=== PATIENT | female | born 1980 | race Caucasian/White ===

== ENCOUNTER 2023-02-16 18:48 | Emergency (ER) | payer OTHER, SELFPAY ==
[2023-02-16 18:49] VITALS: BP 122/83; PULSE 88; RESP 16; TEMP 36.6; O2SAT 100; BMI 21.9
--- NOTE | 2023-02-16 19:10 | ED.VIS.FEGU ---
HPI HPI - Female History of Present Illness Chief Complaint: Vag Bleeding Informant: patient Narrative Narrative: Patient presents with vaginal bleeding. Patient states that she started with a little bit of vaginal bleeding that was mild on Saturday. It paused. She has had slight clear mucus. She has had a little bit of red bleeding today. She has a little bit of may be discomfort in her pelvic areas but its not like a period cramp. Its not pain. Is very minimal. She is only had a small amount of bleeding. No clots. No fevers or chills. No urinary symptoms. No back or flank pain. Her last menstrual cycle was about 3 weeks ago. But that cycle was 1 week off. She states she has had problems sometimes in the spring with her menstrual cycles being irregular. The reason she came in today as she called her doctor's office in [place] and they recommended she come to the ER. It sounds like the concern is if she may be . She has never been before. No blood thinners. PFSH PFSH Allergy/AdvReac Type Severity Reaction Status Date / Time No Known Allergies Allergy Verified 02/16/23 18:51 Social History Smoking Status: Never smoker ROS ROS ED Constitutional Constitutional ED: Denies chills or fever(s) Cardiovascular Cardiovascular: Denies chest pain, palpitations or racing heartbeat Respiratory/Chest Respiratory/Chest: Denies cough Gastrointestinal Gastrointestinal: Denies constipation, diarrhea, melena, nausea or vomiting Genitourinary Genitourinary ED: Reports other Details: See history of present illness ; Denies dysuria, hematuria or urinary frequency Musculoskeletal Musculoskeletal: Denies neck pain Neurologic Neurologic: Denies paresthesias or weakness Hematologic/Lymphatic Hematologic/Lymphatic: Denies easy bleeding or easy bruising Allergic/Immunologic Allergic/Immunologic ED: Denies urticaria EXAM Physical Exam Narrative Exam Narrative: Patient awake alert no acute distress. She walked back from triage comfortably. HEENT shows no trauma. Oropharynx is moist. Eyes show no pallor at all. No indication of anemia. Heart is regular. Not tachycardic. No murmur gallop or rub. Lungs are clear. Saturations are 100% on room air showing no hypoxia. Abdomen is thin flat has normal bowel sounds. There is no tenderness anywhere in the abdomen including in the lower pelvic areas suprapubic region. Very benign abdomen. shows no suprapubic or CVA area tenderness. Extremities show no edema cords or abnormal bruising or petechiae. Neurologically patient awake alert stable gait strength no focal deficit. Const Vital Signs: 02/16/23 18:49 02/16/23 21:44 Temperature 97.9 F Temperature Source Temporal Pulse Rate 88 88 Respiratory Rate 16 16 Blood Pressure 122/83 H 122/83 H Blood Pressure Mean 96 Pulse Ox 100 100 Oxygen Delivery Method Room Air MDM MDM MDM Narrative Medical decision making narrative: Patient's urinalysis shows a few red cells but no sign of infection. test was negative. I talk with the patient and her significant other. They have been trying to get . They are wondering why she is having some irregular cycles. We discussed that it is a little beyond the emergency department to make a firm diagnosis of that. There are multiple factors that can contribute to this. With the patient's age it is even possible she is starting to go through menopause. Evidently her mother went through in her mid to late 30s. The patient evidently has a follow-up with a new [employer] doctor in about 2 weeks. I have encouraged her to follow-up. I do not think the patient needs ultrasound and pelvic exam. She has mild spotting with slightly irregular menstrual cycles with a normal exam no sign of anemia and not . Lab Data Labs: Laboratory Results - last 24 hr 02/16/23 20:35 Urine Color Yellow Urine Clarity Clear Urine pH 5.0 Ur Specific [place] 1.020 Urine Protein Negative Urine Glucose (UA) Normal Urine Ketones Negative Urine Occult Blood 150 H Urine Nitrite Negative Urine Bilirubin Negative Urine Urobilinogen Normal Ur Leukocyte Esterase 25 H Urine RBC 5-10 SEEN Urine WBC 0-5 SEEN Ur Squamous Epith Cells 0-5 SEEN Urine Bacteria RARE Urine Mucus 0 SEEN Urine Test Negative Discharge Plan Triage Chief Complaint: Vag Bleeding ED Provider: Nestor Gant Dx/Rx/DC Orders Clinical Impression: Vaginal spotting, Irregular menses Instructions: ED Dysfunctional Uterine Bleeding Activity Restrictions/Additional Instructions: See your new wet machine tender as scheduled later this month. Disposition Disposition: Home, Self Care Discharge Date/Time: 02/16/23 21:48
[2023-02-16 20:43] LABS: Mucous, Urine 0 SEEN /hpf (<or=2+)
[2023-02-16 20:44] LABS: Color, Urine Yellow (Yellow); Glucose, Dipstick Normal (Normal); Ketone-Dipstick Negative (Negative); Leukocyte Esterase-Dipstick 25 /ul (Negative); Nitrite-Dipstick Negative (Negative); Occult Blood-Urine 150 /ul (Negative); Protein-Dipstick Negative (Negative); Urine Bilirubin Dipstick Negative (Negative); Urine Clarity Clear (Clear); Urine Urobilinogen Normal (Normal)
[2023-02-16 20:49] LABS: Red Blood Cells-Urine 5-10 SEEN /hpf (0-5); White Blood Cells 0-5 SEEN /hpf (0-5)
[2023-02-16 20:50] LABS: Bacteria RARE /hpf (None Seen); Internal QC Validated? YES +Cl - CLEAR BKGD; Pregnancy, Urine Negative Negative; Squamous Epithelial Cells - UA 0-5 SEEN /hpf (5-10)
[2023-02-16 21:44] VITALS: BP 122/83; PULSE 88; RESP 16; O2SAT 100
== END 2023-02-16 21:48 | disposition home or self-care (01) ==
PROVIDERS: Emergency Provider Emergency Medicine; Visit Provider Emergency Medicine
DX: N93.9 Abnormal uterine and vaginal bleeding, unspecified (principal); N92.6 Irregular menstruation, unspecified
CPT/HCPCS: 81001; 81025; 99283; A4216